=== PATIENT | male | born 1950 | race Caucasian/White ===

== ENCOUNTER 2017-03-23 10:50 | Emergency (ER) | payer OTHER ==
[2017-03-23 10:57] VITALS: BP 171/83; BMI 32.5
--- NOTE | 2017-03-23 11:26 | DR.GENAD ---
HPI - PCP Primary Care Physician: ESSENCE - HPI Comment HPI Comment: WORSE TODAY. HISTORY KIDNEY STONE WELL CHRONIC BACK PAIN. NO DYSURIA OR HEMATURIA. NO TRAUMA. - Complaint/Symptoms Chief Complaint Doctors Comments: LEFT FLANK PAIN, INTERMITTENT FOR THREE DAYS. Chief Complaint:: PT C/O LT FLANK PAIN. PT STATES THE OAIN STARTED SUNDAY AND TODAY THE PAIN IS UNBEARABLE. PT STATES HE HAS A HX OF KIDNEY STONES. Self Treatment fo Chief Complaint: PT HAS TAKEN 1/2 OF PERCOCET THIS AM FOR HIS PAIN - Nurses notes reviewed Nurses Notes Review: Yes - Source History Provided: Patient - Mode of Arrival Mode of Arrival: Ambulatory - Timing Onset of Chief Complaint: 03/20/17 Came on: Suddenly - Duration Duration: Intermittent Duration: Days - Severity Severity: Moderate PMH - PMH Past Medical History: Yes Past Medical History: Arthritis, Diabetes, Dyslipidemia, Migraines, GERD Past Surgical History: Yes Surgical History: Ortho Surgery, Other - Family History History of Family Medical Conditions: Yes Family Medical History: Diabetes Mellitus, Hypertension - Social History Does any household member use tobacco: No Alcohol Use: None Do you use any recreational Drugs:: No Lives With: Family Lives Where: Home - infectious screening In the last 2 months have you had wt loss of >10#?: NO Have you had fever, night sweats or hemotysis?: No Have you traveled outside the country in the last 6 months?: No Isolation: Standard ROS - Review of Systems Constitutional: No Symptoms Reported. negative: Chills, Fever Eyes: No Symptoms Reported ENTM: No Symptoms Reported Respiratoy: No Symptoms Reported Cardiovascular: No Symptoms Reported Gastrointestinal/Abdominal: No Symptoms Reported Genitourinary: No Symptoms Reported Neurological: No Symptoms Reported Musculoskeletal: Back Pain (LT FLANK PAIN) Integumentary: No Symptoms Reported Hematologic/Lymphatic: No Symptoms Reported Endocrine: No Symptoms Reported All Other Systems: Reviewed and Negative PE - Vital Signs Vitals: Temperature 97.9 F Pulse Rate 95 Respiratory Rate 18 Blood Pressure [Right Arm] 158/83 Blood Pressure [Left Arm] 167/90 Blood Pressure 171/83 O2 Sat by Pulse Oximetry 93 - General Limitations: No Limitations General Appearance: Alert - Head Head Exam: Normal Inspection - Eyes Eye exam: Normal Appearance - ENT ENT Exam: Normal External Ear Exam External Ear Exam: Normal External Inspection TM/Canal Exam: Bilateral Normal Nose Exam: Normal Nose Exam Mouth Exam: Normal Inspection Throat Exam: Normal Inspection - Neck Neck Exam: Trachea Midline - Chest Chest Inspection: Symmetric Chest Wall Rise - Respiratory Respiratory Exam: Normal Lung Sounds Bilat Respiratory Exam: Bilateral Clear to Auscultation - Cardiovascular Cardiovascular Exam: Regular Rate, Normal Rhythm, Normal Heart Sounds - Abdominal Exam Abdominal Exam: Normal Bowel Sounds, Soft. negative: Tenderness - Extremities Extremities Exam: Normal Inspection - Back Back Exam: Paraspinal Tenderness - Neurologic Neurological Exam: Alert, Oriented X3 - Psychiatric Psychiatric Exam: Normal Affect, Normal Mood - Skin Skin Exam: Normal Color MDM - Additional Information Additional Information Obtained From: Family - Differential Diagnosis Differential Diagnosis: LOW BACK PAIN, UTI, KIDNEY STONE, ARTHRITIS Course - Treatment Treatment: SEE ORDERS. IM PAIN MED IN ED. - Reevaluation 1st: Improved - Education/Counseling Education/Counseling: Patient, Family, Education Educated On: Treatment, Diagnosis, Needs for Follow Up ROR - Labs Reviewed Laboratory Results Reviewed?: Yes Result Diagrams: 03/23/17 12:15 03/23/17 12:15 Laboratory: WBC 7.6 X10^3/uL (3.6-10.0) 03/23/17 12:15 RBC 5.56 X10^6/uL (4.7-6.0) 03/23/17 12:15 Hgb 18.6 g/dL (13.5-18.0) H 03/23/17 12:15 Hct 53.5 % (42.0-54.0) 03/23/17 12:15 MCV 96.2 fL (80.0-100.0) 03/23/17 12:15 MCH 33.5 pg (27.0-34.0) 03/23/17 12:15 MCHC 34.8 g/dL (33.0-35.0) 03/23/17 12:15 RDW 13.9 % (11.6-16.5) 03/23/17 12:15 Plt Count 149 X10^3/uL (150.0-450.0) L 03/23/17 12:15 MPV 9.0 fL (7.4-11.0) 03/23/17 12:15 Neut % 57.5 % (42.0-75.0) 03/23/17 12:15 Lymph % 24.3 % (21.0-51.0) 03/23/17 12:15 [place] % 13.2 % (0.0-13.0) H 03/23/17 12:15 Eos % 4.3 % (0.9-2.9) H 03/23/17 12:15 Baso % 0.7 % (0.2-1.0) 03/23/17 12:15 Neut # 4.4 x10^3/uL (2.2-4.8) 03/23/17 12:15 Lymph # 1.9 X10^3/uL (1.3-2.9) 03/23/17 12:15 [place] # 1.0 x10^3/uL (0.3-0.8) H 03/23/17 12:15 Eos # 0.3 x10^3/uL (0.0-0.2) H 03/23/17 12:15 Baso # 0.1 X10^3/uL (0.0-0.1) 03/23/17 12:15 Absolute Nucleated RBC 0.2 /100WBC 03/23/17 12:15 Sodium 137 mmol/L (136-145) 03/23/17 12:15 Corrected Sodium 139 mmol/L (136-145) 03/23/17 12:15 Potassium 4.4 mmol/L (3.5-5.1) 03/23/17 12:15 Chloride 101 mmol/L (98-107) 03/23/17 12:15 Carbon Dioxide 28.5 mmol/L (21-32) 03/23/17 12:15 BUN 12 mg/dL (7-18) 03/23/17 12:15 Creatinine 1.13 mg/dL (0.70-1.30) 03/23/17 12:15 Est GFR (MDRD) Af Amer > 60 (>60) 03/23/17 12:15 Est GFR (MDRD) Non-Af > 60 (>60) 03/23/17 12:15 Glucose 198 mg/dL (65-99) H 03/23/17 12:15 Calcium 8.6 mg/dL (8.5-10.1) 03/23/17 12:15 Corrected Calcium TNP 03/23/17 12:15 Total Bilirubin 0.50 mg/dL (0.2-1.0) 03/23/17 12:15 AST 25 Units/L (15-37) 03/23/17 12:15 ALT 54 Units/L (12-78) 03/23/17 12:15 Alkaline Phosphatase 45 Units/L (46-116) L 03/23/17 12:15 Total Protein 6.9 g/dL (6.4-8.2) 03/23/17 12:15 Albumin 3.7 g/dL (3.4-5.0) 03/23/17 12:15 Globulin 3.2 g/dL (2.5-4.5) 03/23/17 12:15 Albumin/Globulin Ratio 1.2 Ratio (1.1-2.1) 03/23/17 12:15 Specimen Type Clean catch urine 03/23/17 11:42 Urine Color Yellow (YELLOW) 03/23/17 11:42 Urine Appearance Clear (CLEAR) 03/23/17 11:42 Urine pH 5.0 (5.0 - 8.0) 03/23/17 11:42 Ur Specific [place] 1.010 (1.000-1.030) 03/23/17 11:42 Urine Protein Negative (NEGATIVE) 03/23/17 11:42 Urine Glucose (UA) 3+ (NEGATIVE) 03/23/17 11:42 Urine Ketones Negative (NEGATIVE) 03/23/17 11:42 Urine Occult Blood Negative (NEGATIVE) 03/23/17 11:42 Urine Nitrite Negative (NEGATIVE) 03/23/17 11:42 Urine Bilirubin Negative (NEGATIVE) 03/23/17 11:42 Urine Urobilinogen Normal (NORMAL) 03/23/17 11:42 Ur Leukocyte Esterase Negative (NEGATIVE) 03/23/17 11:42 Urine RBC 0-2 /HPF (NEGATIVE) 03/23/17 11:42 Urine WBC 0-2 /HPF (NEGATIVE) 03/23/17 11:42 Ur Squamous Epith Cells Negative /HPF (NEGATIVE) 03/23/17 11:42 Urine Bacteria Negative /HPF (NEGATIVE) 03/23/17 11:42 Ur Culture Indicated? No/not indicated 03/23/17 11:42 - XRAY XRAY Interpreted by: Radiologist XRAY Findings: REPORT DISCUSS WITH PATIENT AND FAMILY. - Diagnosis Discharge Problem: Low back pain Qualifiers: Chronicity: acute Back pain laterality: bilateral Sciatica presence: without sciatica Qualified Code(s): M54.5 - Low back pain - Discharge Plan Disposition: HOME, SELF-CARE Condition: Stable Prescriptions: Ketorolac Tromethamine [Toradol Tab] 10 mg PO Q8H PRN #20 tab PRN Reason: Pain - Follow ups/Referrals Follow ups/Referrals: Charly Cleaning [Primary Care Provider] - 3 days - Instructions Instructions: Back Pain, Adult, Jwob-[id number] Additional Instructions: YOU HAVE LEFT FLANK PAIN. CONTINUE WITH HOME MEDS. RETURN TO ED IF WORSE.
[2017-03-23] MEDS ORDERED: ZOFRAN INJ 4 MG VIAL IVP ONE (11:34)
[2017-03-23] MEDS ORDERED: MORPHINE SULFATE INJ 4 MG IVP ONE (11:34)
[2017-03-23] MEDS ORDERED: MORPHINE SULFATE INJ 4 MG ONE (11:50)
[2017-03-23] MEDS ORDERED: ZOFRAN INJ 4 MG VIAL ONE (11:50)
[2017-03-23] MEDS ORDERED: NS 1000 ML 1,000 ML IV SCH (12:00)
[2017-03-23 12:23] LABS: BASOPHILS # (AUTO) 0.1 X10^3/uL (0.0-0.1); BASOPHILS % (AUTO) 0.7 % (0.2-1.0); EOSINOPHILS # (AUTO) 0.3 x10^3/uL (0.0-0.2); EOSINOPHILS % (AUTO) 4.3 % (0.9-2.9); HEMATOCRIT 53.5 % (42.0-54.0); HEMOGLOBIN 18.6 g/dL (13.5-18.0); LYMPHOCYTES # (AUTO) 1.9 X10^3/uL (1.3-2.9); LYMPHOCYTES % (AUTO) 24.3 % (21.0-51.0); MEAN CORPUSCULAR HEMOGLOBIN 33.5 pg (27.0-34.0); MEAN CORPUSCULAR HGB CONC 34.8 g/dL (33.0-35.0); MEAN CORPUSCULAR VOLUME 96.2 fL (80.0-100.0); MONOCYTES % (AUTO) 13.2 % (0.0-13.0); NEUTROPHILS # (AUTO) 4.4 x10^3/uL (2.2-4.8); NEUTROPHILS % (AUTO) 57.5 % (42.0-75.0); PLATELET COUNT 149 X10^3/uL (150.0-450.0); RED BLOOD COUNT 5.56 X10^6/uL (4.7-6.0); RED CELL DISTRIBUTION WIDTH 13.9 % (11.6-16.5); WHITE BLOOD COUNT 7.6 X10^3/uL (3.6-10.0)
[2017-03-23 12:23] LABS: BILIRUBIN,URINE NEGATIVE (NEGATIVE); BLOOD/HEMOGLOBIN,URINE NEGATIVE (NEGATIVE); GLUCOSE, URINE 3+ (NEGATIVE); KETONES,URINE NEGATIVE (NEGATIVE); LEUKOCYTE ESTERASE ,URINE NEGATIVE (NEGATIVE); NITRITES,URINE NEGATIVE (NEGATIVE); PROTEIN,URINE NEGATIVE (NEGATIVE); UROBILINOGEN,URINE NORMAL (NORMAL)
[2017-03-23 12:28] LABS: APPEARANCE,URINE CLEAR (CLEAR); BACTERIA,URINE NEGATIVE /HPF (NEGATIVE); COLOR,URINE YELLOW (YELLOW); RBC,URINE 0-2 /HPF (NEGATIVE); SQUAMOUS EPITHELIAL CELL,UR NEGATIVE /HPF (NEGATIVE)
[2017-03-23 12:32] LABS: ALANINE AMINOTRANSFERASE 54 Units/L (12-78); ALBUMIN 3.7 g/dL (3.4-5.0); ALKALINE PHOSPHATASE 45 Units/L (46-116); ASPARTATE AMINO TRANSFERASE 25 Units/L (15-37); BLOOD UREA NITROGEN 12 mg/dL (7-18); CALCIUM 8.6 mg/dL (8.5-10.1); CARBON DIOXIDE 28.5 mmol/L (21-32); CHLORIDE 101 mmol/L (98-107); COR NA(FOR HYPERGLY) 139 mmol/L (136-145); CREATININE 1.13 mg/dL (0.70-1.30); SODIUM 137 mmol/L (136-145); TOTAL PROTEIN 6.9 g/dL (6.4-8.2); eGFR BLACK RACES > 60 (>60); eGFR NON BLACK RACES > 60 (>60)
[2017-03-23] MEDS ORDERED: DILAUDID INJ ONE (12:55)
[2017-03-23] MEDS ORDERED: DILAUDID INJ IVP ONE (12:55)
[2017-03-23] MEDS ORDERED: NS 1000 ML 1,000 ML ONE (12:58)
--- NOTE | 2017-03-23 14:14 | CT ---
HISTORY: Left flank pain, history kidney stones Study: CT abdomen and pelvis without IV or oral contrast Comparison: 03/05/2015. Technique: Multiple axial images of the abdomen and pelvis were obtained from the lung bases to the pubic symphy sis without the administration of IV or oral contrast. Coronal and sagittal images are also reviewe d. Dose reduction techniques utilized automatic exposure control. Findings: The visualized portions of the lung bases are unremarkable. The liver, spleen, pancreas, kidneys, an d adrenal glands are unremarkable in their CT appearance. Gallbladder has been surgically removed. Th e tiny stone present involving the left kidney is no longer seen. There is no evidence of renal mass, stone or hydronephrosis. IVC filter is again seen.. No significant mesenteric lymphadenopathy or st randing can be observed. No free fluid or free air is seen within the abdomen. No bowel wall thicke alex or bowel dilatation is present. The appendix is normal. Mild descending and sigmoid colon divert iculosis is present without diverticulitis, abscess or fluid.. The urinary bladder is grossly unremar kable. The spine stimulator is no longer identified. Surgical changes in the left-sided metallic scr ew present the lower lumbar spine. There again multiple venous collaterals present along the lower ab dominal and pelvic wall regions. IMPRESSION: The prior seen small kidney stone present in the left midpole region is no longer identified. No evid ence of mass, stone or hydronephrosis is seen involving either kidney. Uncomplicated appearing in mild descending named sigmoid colon diverticulosis without diverticulitis, abscess or pleural fluid. IVC filter Multiple venous collaterals present involving the lower abdomen and pelvic arellano anteriorly. Wart lumbar spine surgery as described. The spine stimulator has been removed. Reported By:
[2017-03-23] MEDS ORDERED: NORFLEX INJ IM ONE (15:12)
[2017-03-23] MEDS ORDERED: TORADOL 30 MG VIAL IVP ONE (15:12)
[2017-03-23] MEDS ORDERED: TORADOL 30 MG VIAL ONE (15:17)
[2017-03-23] MEDS ORDERED: NORFLEX INJ ONE (15:17)
== END 2017-03-23 15:43 | disposition home or self-care (01) ==
LOC: ER 11:05
DX: M54.5 Low back pain (principal); R10.84 Generalized abdominal pain
CPT/HCPCS: 36415; 74176; 80053; 81001; 85025; 96365; 96367; 96372; 96374; 96375; 99283; A4222; J1170; J1885; J2270; J2360; J2405

== ENCOUNTER 2018-05-22 11:24 | Observation (INO) ==
[2018-05-22 11:32] VITALS: BMI 32.5
[2018-05-22] MEDS ORDERED: MORPHINE SULFATE INJ 2 MG INJ ONE (11:43)
[2018-05-22] MEDS ORDERED: MORPHINE SULFATE INJ 4 MG IVP PRN (11:43)
--- NOTE | 2018-05-22 11:52 | DR.DIZZY ---
HPI Time seen Time Seen by Provider: 05/22/18 11:43 PCP Primary Care Physician: ESSENCE PHELAN Complaint Chief Complaint Doctor Comments: Patient presented to the ED for evaluation of an acute onset of dizziness s/p leaving his at the physicians office. He denies vomiting. Admits to dizziness and headache. Chief Complaint:: PT DROPPED HIS OFF AND AT 'S OFFICE 30 MIN AGO, PT C/O BECOMING DIZZY, PT ATE FOOD THIS AM ,,AND PT GLUCOSE WAS 165 AT HOME ,,BR Source History Provided: Patient Mode of Arrival Mode of Arrival: Ambulatory Timing Onset of Chief Complaint: 05/22/18 Symptom Onset: Unknown Location of Weakness Weakness Location: None Context History of: None Stroke Symptoms: None Associated signs and symptoms Associated Signs and Symptoms: Imbalance and Weak PMH PMH Past Medical History: Yes Past Medical History: Arthritis, Diabetes, Dyslipidemia, Migraines and GERD Past Surgical History: No Family History History of Family Medical Conditions: Yes Family Medical History: Diabetes Mellitus and Hypertension Social History Does patient currently use any type of tobacco product: No Have you used tobacco products in the last 12 months: No Type of Tobacco Use: None Does any household member use tobacco: No Alcohol Use: None Do you use any recreational Drugs:: Yes Lives With: Family Lives Where: Home infectious screening In the last 2 months have you had wt loss of >10#?: NO Have you had fever, night sweats or hemotysis?: No Have you traveled outside the country in the last 6 months?: No Isolation: Standard PE Vital Signs Vitals: Temperature 98.1 F Pulse Rate [Left] 78 Pulse Rate 80 Respiratory Rate 20 Blood Pressure [Right Arm] 158/83 Blood Pressure [Left Arm] 140/70 Blood Pressure 155/79 O2 Sat by Pulse Oximetry 94 General Limitations: No Limitations and Language Barrier General Appearance: Alert and In No Apparent Distress Head Head Exam: Normal Inspection and Atraumatic Eyes Eye exam: Normal Appearance, PERRL and EOMI Pupils: Regular, Round: Bilateral Sclera/Conjunctival: Normal Inspection: Bilateral Anterior Chamber: Normal Inspection: Bilateral ENT ENT Exam: Normal Exam and Normal Oropharynx Neck Neck Exam: Normal Inspection and Full ROM Chest Chest Inspection: Normal Inspection and Symmetric Chest Wall Rise Respiratory Respiratory Exam: Normal Lung Sounds Bilat and Accessory Muscle Use Respiratory Exam: Bilateral: Clear to Auscultation Cardiovascular Cardiovascular Exam: Regular Rate and Normal Rhythm Abdominal Exam Abdominal Exam: Normal Inspection, Normal Bowel Sounds and Soft Rectal Rectal Exam: Deferred Extremeties Extremities Exam: Normal Inspection and Full ROM Back Back Exam: Normal Inspection and Full ROM Neurologic Neurological Exam: Alert, Oriented X3 and CN II-XII Intact COURSE Treatment Treatment: Morphine 3mg,4mg, Benadryl 50mg,compazine 10mg IV, NS Reevaluation 1st: Unchanged 2nd: Improved (1315: No headache) Consultation Called: 13:10 Consultation Comments: Dr Light office agreed to admit for further evaluation ROR Labs Reviewed Laboratory Results Reviewed?: Yes Result Diagrams: 05/22/18 12:11 05/22/18 12:11 Laboratory: WBC 5.6 X10^3/uL (3.6-10.0) 05/22/18 12:11 RBC 5.08 X10^6/uL (4.7-6.0) 05/22/18 12:11 Hgb 17.2 g/dL (13.5-18.0) 05/22/18 12:11 Hct 49.7 % (42.0-54.0) 05/22/18 12:11 MCV 97.8 fL (80.0-100.0) 05/22/18 12:11 MCH 33.9 pg (27.0-34.0) 05/22/18 12:11 MCHC 34.7 g/dL (33.0-35.0) 05/22/18 12:11 RDW 13.5 % (11.6-16.5) 05/22/18 12:11 Plt Count 166 X10^3/uL (150.0-450.0) 05/22/18 12:11 MPV 9.2 fL (7.4-11.0) 05/22/18 12:11 Neut % (Auto) 52.7 % (42.0-75.0) 05/22/18 12:11 Lymph % (Auto) 28.2 % (21.0-51.0) 05/22/18 12:11 [place] % (Auto) 14.9 % (0.0-13.0) H 05/22/18 12:11 Eos % (Auto) 3.6 % (0.9-2.9) H 05/22/18 12:11 Baso % (Auto) 0.6 % (0.2-1.0) 05/22/18 12:11 Neut # (Auto) 3.0 x10^3/uL (2.2-4.8) 05/22/18 12:11 Lymph # (Auto) 1.6 X10^3/uL (1.3-2.9) 05/22/18 12:11 [place] # (Auto) 0.8 x10^3/uL (0.3-0.8) 05/22/18 12:11 Eos # (Auto) 0.2 x10^3/uL (0.0-0.2) 05/22/18 12:11 Baso # (Auto) 0.0 X10^3/uL (0.0-0.1) 05/22/18 12:11 Absolute Nucleated RBC 0.0 /100WBC 05/22/18 12:11 INR Target Range - 05/22/18 11:50 INR 0.99 (0.8-1.3) 05/22/18 11:50 Sodium 136 mmol/L (136-145) 05/22/18 12:11 Corrected Sodium 140 mmol/L (136-145) 05/22/18 12:11 Potassium 4.4 mmol/L (3.5-5.1) 05/22/18 12:11 Chloride 101 mmol/L (98-107) 05/22/18 12:11 Carbon Dioxide 25.2 mmol/L (21-32) 05/22/18 12:11 BUN 20 mg/dL (7-18) H 05/22/18 12:11 Creatinine 1.22 mg/dL (0.70-1.30) 05/22/18 12:11 Est GFR (MDRD) Af Amer > 60 (>60) 05/22/18 12:11 Est GFR (MDRD) Non-Af > 60 (>60) 05/22/18 12:11 Glucose 258 mg/dL (65-99) H 05/22/18 12:11 POC Glucose (mg/dL) 283 mg/dL (65-99) H 05/22/18 17:39 Calcium 8.7 mg/dL (8.5-10.1) 05/22/18 12:11 Corrected Calcium TNP 05/22/18 12:11 Magnesium 1.8 mg/dL (1.7-2.9) 05/22/18 12:11 Total Bilirubin 0.60 mg/dL (0.2-1.0) 05/22/18 12:11 AST 24 Units/L (15-37) 05/22/18 12:11 ALT 45 Units/L (12-78) 05/22/18 12:11 Alkaline Phosphatase 49 Units/L (46-116) 05/22/18 12:11 Creatine Kinase 272 Units/L (39-308) 05/22/18 12:11 CK-MB (CK-2) 1.6 ng/mL (0-4.0) 05/22/18 12:11 CK/CKMB % Calc 0.6 % (<4) 05/22/18 12:11 Troponin I < 0.02 ng/mL (0-1.5) 05/22/18 12:11 Total Protein 6.6 g/dL (6.4-8.2) 05/22/18 12:11 Albumin 3.5 g/dL (3.4-5.0) 05/22/18 12:11 Globulin 3.1 g/dL (2.5-4.5) 05/22/18 12:11 Albumin/Globulin Ratio 1.1 Ratio (1.1-2.1) 05/22/18 12:11 TSH 3rd Generation 1.666 uIU/mL (0.358-3.74) 05/22/18 12:11 Other Results Comments: CT Brain w/o: There is no significant change compared to 03/31/15. The ventricles and sulci are prominent without mass effect. There is no intracranial hemorrhage or mass or edema or subdural collection of fluid. The paranasal sinuses are clear. The mastoid sinuses are clear. The calvaium is intact. Impression: No acute intracranial disease. Chest: No acute ca rdiopulmonary process. MRI: No acute ischemic or hemorrhagic insult. Mild chronic microvascular white matter ischemic disease. Age advanced volume loss XRAY XRAY Interpreted by: Radiologist Instructions Instructions: Migraine Headache, Nxas-me-Temc Vertigo, Jgkb-sf-Wglz Type 2 Diabetes Mellitus, Self Care, Adult, Bnje-wm-Vqzh Dizziness, Uutw-ye-Idov Forms: Patient Portal ADDITIONAL NOTES Additional Notes Additional Notes: Patient admitted for further evaluation
--- NOTE | 2018-05-22 12:15 | CT ---
History: Dizziness starting this morning Study: CT head without contrast. Sagittal and coronal reformations were provided. Comparison: March 31, 2015 Findings: There is no significant change. The ventricles and sulci are prominent without mass effect. There is no intracranial hemorrhage or mass or edema or subdural collection of fluid. The paranasal sinuses are clear. The mastoid sinuses are clear. The calvarium is intact. Impression: No acute intracranial disease Reported By:
[2018-05-22] MEDS ORDERED: MORPHINE SULFATE INJ 2 MG INJ IVP ONE (12:19)
[2018-05-22 12:32] LABS: BASOPHILS % (AUTO) 0.6 % (0.2-1.0); EOSINOPHILS # (AUTO) 0.2 x10^3/uL (0.0-0.2); EOSINOPHILS % (AUTO) 3.6 % (0.9-2.9); HEMATOCRIT 49.7 % (42.0-54.0); HEMOGLOBIN 17.2 g/dL (13.5-18.0); LYMPHOCYTES # (AUTO) 1.6 X10^3/uL (1.3-2.9); LYMPHOCYTES % (AUTO) 28.2 % (21.0-51.0); MEAN CORPUSCULAR HEMOGLOBIN 33.9 pg (27.0-34.0); MEAN CORPUSCULAR HGB CONC 34.7 g/dL (33.0-35.0); MEAN CORPUSCULAR VOLUME 97.8 fL (80.0-100.0); MEAN PLATELET VOLUME 9.2 fL (7.4-11.0); MONOCYTES # (AUTO) 0.8 x10^3/uL (0.3-0.8); MONOCYTES % (AUTO) 14.9 % (0.0-13.0); NEUTROPHILS % (AUTO) 52.7 % (42.0-75.0); PLATELET COUNT 166 X10^3/uL (150.0-450.0); RED BLOOD COUNT 5.08 X10^6/uL (4.7-6.0); RED CELL DISTRIBUTION WIDTH 13.5 % (11.6-16.5); WHITE BLOOD COUNT 5.6 X10^3/uL (3.6-10.0)
[2018-05-22] MEDS ORDERED: BENADRYL INJ 50 MG VIAL IVP ONE (12:36)
[2018-05-22] MEDS ORDERED: COMPAZINE INJ IVP ONE (12:36)
[2018-05-22] MEDS ORDERED: NS 1000 ML 1,000 ML IV ONE (12:36)
[2018-05-22] MEDS ORDERED: COMPAZINE INJ ONE (12:39)
[2018-05-22] MEDS ORDERED: NS 1000 ML 1,000 ML ONE (12:39)
[2018-05-22 12:40] LABS: BLOOD UREA NITROGEN 20 mg/dL (7-18); CALCIUM 8.7 mg/dL (8.5-10.1); CARBON DIOXIDE 25.2 mmol/L (21-32); CHLORIDE 101 mmol/L (98-107); COR NA(FOR HYPERGLY) 140 mmol/L (136-145); CREATININE 1.22 mg/dL (0.70-1.30); SODIUM 136 mmol/L (136-145); TROPONIN I < 0.02 ng/mL (0-1.5); eGFR NON BLACK RACES > 60 (>60)
[2018-05-22] MEDS ORDERED: BENADRYL INJ 50 MG VIAL ONE (12:40)
[2018-05-22 12:45] LABS: ALANINE AMINOTRANSFERASE 45 Units/L (12-78); ALBUMIN 3.5 g/dL (3.4-5.0); ALKALINE PHOSPHATASE 49 Units/L (46-116); ASPARTATE AMINO TRANSFERASE 24 Units/L (15-37); CKMB % 0.6 % (<4); CREATINE KINASE 272 Units/L (39-308); CREATINE KINASE MB 1.6 ng/mL (0-4.0); MAGNESIUM 1.8 mg/dL (1.7-2.9); TOTAL PROTEIN 6.6 g/dL (6.4-8.2)
--- NOTE | 2018-05-22 13:20 | RAD ---
HISTORY: Dizziness Study: Single view chest Comparison: 05/23/2016 Findings: Single portable view is submitted. Lung volumes are reduced resulting in bronchovascular crowding. No infiltrate, effusion or pneumothorax identified. The cardiac and mediastinal contours are within normal limits. The soft tissues are unremarkable. IMPRESSION: 1. No acute cardiopulmonary abnormality. Reported By:
[2018-05-22] MEDS ORDERED: PHENERGAN SUPP 25 MG PR PRN (13:37)
[2018-05-22] MEDS ORDERED: NORCO 5/325 MG TAB PO PRN (13:37)
[2018-05-22] MEDS ORDERED: ZOFRAN INJ 4 MG VIAL IVP PRN (13:37)
--- NOTE | 2018-05-22 14:46 | MRI ---
MRI BRAIN WITHOUT CONTRAST CLINICAL HISTORY: 67-year-old male with altered mental status, dizziness and left-sided headache. COMPARISON: CT head this date and 03/31/2015. TECHNIQUE: Multiplanar, multisequence MR images of the brain were obtained without contrast. FINDINGS: There is no evidence of diffusion restriction. The craniocervical junction is normal. Pituitary and optic nerve complex are normal. Few scattered punctate T2 FLAIR signal hyperintensities are present within the subcortical, juxtacortical, periventricular and supraventricular white matter that are nonspecific in appearance but most likely to represent microvascular white matter ischemic changes. Normal signal characteristics and morphology are demonstrated within the cerebral cortex, corpus callosum, deep [place] nuclei, brainstem and cerebellum. The major vascular flow voids, to include the dural venous sinuses, are intact. No abnormal susceptibility on gradient imaging. Age advanced cortical volume loss is present, with commensurate sulcal and ventricular prominence. The basilar cisterns are normal. Extra-axial cystic structure abutting the right lateral convexity overlying the right frontal lobe follows CSF on all sequences and measures 2.1 x 1.5 x 2.1 cm with smooth scalloping of the inner table, stable since CT head dated 03/31/2015. The orbits and globes are within normal limits. The paranasal sinuses, tympanic cavities and mastoids are clear. IMPRESSION: 1. No acute ischemic or hemorrhagic insult. 2. Mild chronic microvascular white matter ischemic disease. 3. Age advanced volume loss. 4. Cystic extra-axial lesion overlying the right frontal lobe as described above most consistent with arachnoid cyst. Reported By:
[2018-05-22] MEDS ORDERED: PERCOCET TAB 5/325 MG PO PRN (15:24)
[2018-05-22] MEDS: GLUCOPHAGE PO SCH (17:37)
[2018-05-22] MEDS: HumuLIN R SUBCUT PRN ×2 (17:44→21:13)
[2018-05-22] MEDS: GLUCOTROL PO SCH (17:47)
[2018-05-22] MEDS ORDERED: SNACK - Diabetic Appropriate PO SCH (20:00)
[2018-05-22] MEDS ORDERED: GLUCOPHAGE ONE (20:22)
[2018-05-22] MEDS ORDERED: LEVEMIR SC SCH (21:00)
[2018-05-22] MEDS ORDERED: PATIENT'S HOME MEDICATION (Melatonin [Melatonin] 5 MG) PO SCH (21:00)
[2018-05-22] MEDS ORDERED: VICTOZA SC SCH (21:00)
[2018-05-22] MEDS ORDERED: LIPITOR TAB 20 MG PO SCH (21:00)
[2018-05-22] MEDS ORDERED: XANAX PO SCH (21:00)
[2018-05-22] MEDS ORDERED: GLIPIZIDE METFORMIN PO SCH (21:00)
[2018-05-22] MEDS: ZANAFLEX PO SCH (21:05)
[2018-05-22] MEDS: INDERAL TAB 10 MG PO SCH (21:06)
[2018-05-22] MEDS: GLUCOPHAGE ONE ×2 (21:09→21:12)
[2018-05-23 05:21] LABS: BASOPHILS % (AUTO) 0.5 % (0.2-1.0); EOSINOPHILS # (AUTO) 0.3 x10^3/uL (0.0-0.2); EOSINOPHILS % (AUTO) 5.1 % (0.9-2.9); HEMATOCRIT 49.2 % (42.0-54.0); HEMOGLOBIN 16.8 g/dL (13.5-18.0); LYMPHOCYTES # (AUTO) 1.8 X10^3/uL (1.3-2.9); LYMPHOCYTES % (AUTO) 34.7 % (21.0-51.0); MEAN CORPUSCULAR HEMOGLOBIN 34.2 pg (27.0-34.0); MEAN CORPUSCULAR HGB CONC 34.1 g/dL (33.0-35.0); MEAN CORPUSCULAR VOLUME 100.2 fL (80.0-100.0); MEAN PLATELET VOLUME 9.3 fL (7.4-11.0); MONOCYTES # (AUTO) 0.9 x10^3/uL (0.3-0.8); MONOCYTES % (AUTO) 17.3 % (0.0-13.0); NEUTROPHILS # (AUTO) 2.3 x10^3/uL (2.2-4.8); NEUTROPHILS % (AUTO) 42.4 % (42.0-75.0); PLATELET COUNT 158 X10^3/uL (150.0-450.0); RED BLOOD COUNT 4.91 X10^6/uL (4.7-6.0); RED CELL DISTRIBUTION WIDTH 13.8 % (11.6-16.5); WHITE BLOOD COUNT 5.3 X10^3/uL (3.6-10.0)
[2018-05-23 05:33] LABS: ALANINE AMINOTRANSFERASE 44 Units/L (12-78); ALBUMIN 3.2 g/dL (3.4-5.0); ALKALINE PHOSPHATASE 46 Units/L (46-116); ASPARTATE AMINO TRANSFERASE 22 Units/L (15-37); BLOOD UREA NITROGEN 10 mg/dL (7-18); CALCIUM 8.6 mg/dL (8.5-10.1); CARBON DIOXIDE 29.6 mmol/L (21-32); CHLORIDE 103 mmol/L (98-107); COR CA(FOR HYPOALB) 9.2 mg/dL (8.5-10.1); COR NA(FOR HYPERGLY) 144 mmol/L (136-145); CREATININE 1.11 mg/dL (0.70-1.30); SODIUM 140 mmol/L (136-145); TOTAL PROTEIN 6.1 g/dL (6.4-8.2); eGFR NON BLACK RACES > 60 (>60)
[2018-05-23] MEDS: HumuLIN R SUBCUT PRN ×2 (05:49→11:49)
[2018-05-23 07:56] VITALS: BP 142/82
[2018-05-23] MEDS ORDERED: GLUCOPHAGE ONE ×2 (08:05→08:40)
[2018-05-23] MEDS: ZANAFLEX PO SCH (08:32)
[2018-05-23] MEDS: GLUCOPHAGE PO SCH ×2 (08:34→09:23)
[2018-05-23] MEDS: GLUCOTROL PO SCH ×2 (08:35→09:23)
[2018-05-23] MEDS: INDERAL TAB 10 MG PO SCH (08:35)
[2018-05-23] MEDS ORDERED: CELEBREX PO SCH (09:00)
[2018-05-23] MEDS ORDERED: PROTONIX TAB 40 MG PO SCH (09:00)
[2018-05-23] MEDS ORDERED: LOVAZA PO SCH (09:00)
[2018-05-23] MEDS ORDERED: LYRICA CAP 100 MG PO PRN (09:00)
[2018-05-23] MEDS ORDERED: LEVEMIR SC SCH (09:00)
[2018-05-23] MEDS ORDERED: SINGULAIR TAB 10 MG PO SCH (09:00)
[2018-05-23] MEDS ORDERED: FOLIC ACID TAB 1 MG PO SCH (09:00)
--- NOTE | 2018-06-02 21:13 | DR.CARTERS ---
Short Stay Summary - Admission Date Date of Admission: 05/22/18 - Discharge Date Discharge Date: 05/23/18 - Admission Diagnoses (1) Dizziness Status: Acute (2) Migraine headache Status: Acute (3) Type II diabetes mellitus, uncontrolled Status: Chronic - Hospital Course Hospital Course: IS A 67 YEAR OLD PATIENT OF OURS WHO PRESENTED TO THE ER WITH COMPLAINTS OF DIZZINESS AND INCREASED BLOOD SUGAR. HE ALSO REPORTS HEADACHE. ON ARRIVAL, VITALS WERE 97.1-90-20-97%-168/80. LABS WERE OBTAINED. ABNORMAL LAB VALUES INCLUDED THE FOLLOWING: BUN 20, GLUCOSE 258. A BRAIN CT WAS OBTAINED AND REVEALED: NO ACUTE INTRACRANIAL DISEASE. A CHEST XRAY WAS OBTAINED AND REVEALED: NO ACUTE CARDIOPULMONARY ABNORMALITY. EKG REVEALED SINUS RHYTHM WITH HR 82. HE WAS GIVEN A NORMAL SALINE BOLUS IN THE ER WELL BENADRYL 50MG IV X 1, MORPHINE 3MG IV X 1, THEN MORPHINE 4MG IV X 1. HE WAS ADMITTED FOR FURTHER EV ALUATION AND TREATMENT OF ACUTE DIZZINESS, HEADACHE, AND HYPERGLYCEMIA. AFTER ADMISSION, A MRI WAS OBTAINED. IT REVEALED: No acute ischemic or hemorrhagic insult. Mild chronic microvascular white matter ischemic disease. Age advanced volume loss. Cystic extra-axial lesion overlying the right frontal lobe as described above most consistent with arachnoid cyst. WE PLANNED TO FOLLOW UP WITH AM LABS AND CONTINUE TO MONITOR. ON THE MORNING FOLLOWING ADMISSION, PATIENT REPORTED FEELING WELL. HE DENIED DIZZINESS OR HEADACHE. AM VITALS WERE 98.5-70-13-95%-142/82. LABS WERE OBTAINED. ABNORMAL LAB VALUES INCLUDE THE FOLLOWING: GLUCOSE 247, TOTAL PROTEIN 6.1, ALBUMIN 3.2. NO CHANGES NOTED TO EKGS. WE PLANNED FOR DISCHARGE. INSTRUCTIONS FOR MEDICATIONS AND DISCHARGE GIVEN TO PATIENT AND FAMILY. THEY VERBALIZED UNDERSTANDING. PATIENT WAS INSTRUCTED TO DECREASE LEVEMIR TO 25UNITS BID AND START FARXIGA 5MG PO DAILY. HE WAS INSTRUCTED TO CONTINUE ALL OTHER HOME MEDICATIONS. HE WAS GIVEN AN APPOINTMENT TO FOLLOW UP IN THE OFFICE ON 06/06/18 AT 2:50PM. HE WAS DISCHARGE HOME WITH SPOUSE IN STABLE CONDITION. - Discharge Medications Discharge Medications: Home Medication List Lyrica 100 mg PO TID 05/22/18 [History] Victoza 2-Mitch 18 units SUBCUT HS 05/22/18 [History] atorvastatin 20 mg PO HS 05/22/18 [History] celecoxib 200 mg PO DAILY 05/22/18 [History] clonazepam 1 - 2 tab PO .EVERYOTHERDAY 05/22/18 [History] folic acid 800 mg PO DAILY 05/22/18 [History] furosemide 20 mg PO DAILY 05/22/18 [History] glipizide-metformin 1 tab PO BID 05/22/18 [History] melatonin 5 mg PO HS 05/22/18 [History] montelukast 10 mg PO DAILY 05/22/18 [History] omega 3-swi-hxr-fish oil [Fish Oil] 800 mg PO DAILY 05/22/18 [History] tizanidine 6 mg PO BID 05/22/18 [History] dapagliflozin [Farxiga] 5 mg PO QAM #30 tab 05/23/18 [Rx] insulin detemir U-100 [Levemir U-100 Insulin] 25 unit SUBCUT BID #1 vial 05/23/18 [Rx] Prescriptions: dapagliflozin [Farxiga] Charly Cleaning insulin detemir U-100 [Levemir U-100 Insulin] Charly Cleaning - Discharge Plan Disposition: 01 HOME, SELF-CARE Condition: Stable Prescriptions: dapagliflozin [Farxiga] 5 mg PO QAM #30 tab insulin detemir U-100 [Levemir U-100 Insulin] 25 unit SUBCUT BID #1 vial - Follow up/Referrals Follow up/Referrals: Charly Cleaning [Primary Care Provider] - 06/06/18 2:50 pm - Instructions Instructions: Migraine Headache, Wryz-hx-Ysod, Form - Daily Diabetes Record, Vertigo, Rjry-xq-Zvtu, Coping With Diabetes, Type 2 Diabetes Mellitus, Self Care, Adult, Zzam-fo-Jntt, Dizziness, Wzun-fa-Yyhk, How to Avoid Diabetes Mellitus Problems Additional Instructions: DIABETIC DIET. ACTIVITY TOLERATED. Forms: Patient Portal
== END 2018-05-23 11:50 | disposition home or self-care (01) ==
LOC: MED/SURG 11:27 → ER 11:27 → MED/SURG 14:00
PROVIDERS: ADMIT Internal Medicine; ATTEND Internal Medicine
DX: E78.2 Mixed hyperlipidemia; R94.31 Abnormal electrocardiogram [ECG] [EKG]; R42 Dizziness and giddiness; K21.9 Gastro-esophageal reflux disease without esophagitis; Z79.899 Other long term (current) drug therapy; E11.65 Type 2 diabetes mellitus with hyperglycemia; G43.809 Other migraine, not intractable, without status migrainosus; I10 Essential (primary) hypertension; G93.0 Cerebral cysts
CPT/HCPCS: 36415; 70450; 70551; 71010; 71045; 80053; 82550; 82553; 83735; 84443; 84484; 85025; 85610; 93005; 96365; 96372; 96374; 96375; 99284; A4222; G0378; J0780; J1200; J1815; J2270; J7030

== ENCOUNTER 2025-01-08 15:11 | Observation (INO) ==
[2025-01-08] MEDS: MORPHINE SULFATE INJ 2 MG INJ IVP ONE (15:41)
[2025-01-08 15:44] LABS: MEAN PLATELET VOLUME 9.1 fL (7.4-11.0); RED CELL DISTRIBUTION WIDTH 13.8 % (11.6-16.5)
--- NOTE | 2025-01-08 15:47 | DR.GENAD ---
HPI Time Seen Time Seen by Provider: 01/08/25 15:22 PCP Primary Care Physician: theron Complaint/Symptoms Chief Complaint Doctors Comments: Patient with complaint of left knee pain for 2 weeks had ultrasound ordered by his Ortho and was found to have new DVT. Patient is currently on Plavix due to coronary artery disease with stents. Patient states he is having some difficulty walking on that leg due to pain. Denies shortness of breath or chest pain. Otherwise has no complaints. Chief Complaint:: Patient states about two weeks ago he started having pain behind the left knee so he made an appointment with bone [facility] and he seen the [facility] and they set him up to go back in a week to see the doctor and by then the pain had moved down to his left calf so the physician ordered a outpatient LEV that he just had done and told him he had a clot to come to the ER. Self Treatment fo Chief Complaint: oxycodone 0630 COVID-19 Coronavirus risk:travel/contact w/high risk person: No Has patient experienced Coronavirus symptoms: No Source History Provided: Patient Mode of Arrival Mode of Arrival: Wheelchair Timing Onset of Chief Complaint: 12/25/24 PMH PMH Past Medical History: Yes Past Medical History: Arthritis, Diabetes, Dyslipidemia, GERD and Hypertension Past Medical History Comment: blood clot Past Surgical History: Yes Surgical History: Abdominal Surgery, Angioplasty/Stents, Ortho Surgery, Lithotripsy and Other Past Surgical History Comment: back sx Family History History of Family Medical Conditions: Yes Family Medical History: Diabetes Mellitus and Hypertension Social History Does patient currently use any type of tobacco product: No Have you used tobacco products in the last 12 months: No Type of Tobacco Use: None Does any household member use tobacco: No Alcohol Use: None Do you use any recreational Drugs:: No Lives With: Family Lives Where: Home Travel Risk Coronavirus risk:travel/contact w/high risk person: No Has patient experienced Coronavirus symptoms: No Infectious screening In the last 2 months have you had wt loss of >10#?: NO Have you had fever, night sweats or hemotysis?: No Have you traveled outside the country in the last 6 months?: No Isolation: Standard ROS Review of Systems Constitutional: No Symptoms Reported; negative Fever Eyes: No Symptoms Reported ENTM: No Symptoms Reported Respiratoy: No Symptoms Reported; negative Short of Breath Cardiovascular: See HPI and Edema (Left lower extremity); negative Chest Pain, Palpitations, Syncope or Cyanosis Gastrointestinal/Abdominal: No Symptoms Reported Genitourinary: No Symptoms Reported Neurological: No Symptoms Reported Musculoskeletal: No Symptoms Reported Integumentary: No Symptoms Reported Hematologic/Lymphatic: No Symptoms Reported Endocrine: No Symptoms Reported Psychiatric: No Symptoms Reported All Other Systems: Reviewed and Negative PE Vital Signs Vitals: Vital Signs Temperature 97.9 F Pulse Rate 79 Pulse Rate 85 Pulse Rate 79 Respiratory Rate 18 Respiratory Rate 24 Respiratory Rate 17 Respiratory Rate 25 Blood Pressure 120/58 Blood Pressure 143/66 O2 Sat by Pulse Oximetry 94 O2 Sat by Pulse Oximetry 94 General Limitations: No Limitations General Appearance: Alert and In No Apparent Distress Head Head Exam: Normal Inspection Eyes Eye exam: Normal Appearance Neck Neck Exam: Normal Inspection Chest Chest Inspection: Normal Inspection Respiratory Respiratory Exam: Normal Lung Sounds Bilat Respiratory Exam: Bilateral: Clear to Auscultation Cardiovascular Cardiovascular Exam: Regular Rate and Normal Rhythm Abdominal Exam Abdominal Exam: Normal Inspection, Normal Bowel Sounds and Soft Extremities Extremities Exam: Normal Capillary Refill and Edema (Left lower extremity) Back Back Exam: Normal Inspection Neurologic Neurological Exam: Alert and Oriented X3 Psychiatric Psychiatric Exam: Normal Affect and Normal Mood Skin Skin Exam: Warm, Dry, Intact and Normal Color COURSE Treatment Treatment: Left lower extremity DVT. Discussed results of workup with patient and family. Discussed risk of benefits of adding Eliquis to his medications and they are agreeable. Patient concerned about going home due to the pain in his leg and he is agreeable to admission. Consultation Called: 17:21 Consultation Comments: Discussed case with Dr. Oquendo and she is agreeable with admission. ROR Labs Reviewed Laboratory Results Reviewed?: Yes 01/08/25 15:37 01/08/25 15:37 Laboratory: WBC 7.5 X10^3/uL (3.6-10.0) 01/08/25 15:37 RBC 4.42 X10^6/uL (4.7-6.0) L 01/08/25 15:37 Hgb 14.5 g/dL (13.5-18.0) 01/08/25 15:37 Hct 42.7 % (42.0-54.0) 01/08/25 15:37 MCV 96.8 fL (80.0-100.0) 01/08/25 15:37 MCH 32.8 pg (27.0-34.0) 01/08/25 15:37 MCHC 33.8 g/dL (33.0-35.0) 01/08/25 15:37 RDW 13.8 % (11.6-16.5) 01/08/25 15:37 Plt Count 217 X10^3/uL (150.0-450.0) 01/08/25 15:37 MPV 9.1 fL (7.4-11.0) 01/08/25 15:37 Neut % (Auto) 63.0 % (42.0-75.0) 01/08/25 15:37 Lymph % (Auto) 24.4 % (21.0-51.0) 01/08/25 15:37 [place] % (Auto) 8.8 % (0.0-13.0) 01/08/25 15:37 Eos % (Auto) 3.3 % (0.9-2.9) H 01/08/25 15:37 Baso % (Auto) 0.5 % (0.2-1.0) 01/08/25 15:37 Neut # (Auto) 4.7 x10^3/uL (2.2-4.8) 01/08/25 15:37 Lymph # (Auto) 1.8 X10^3/uL (1.3-2.9) 01/08/25 15:37 [place] # (Auto) 0.7 x10^3/uL (0.3-0.8) 01/08/25 15:37 Eos # (Auto) 0.2 x10^3/uL (0.0-0.2) 01/08/25 15:37 Baso # (Auto) 0.0 X10^3/uL (0.0-0.1) 01/08/25 15:37 Absolute Nucleated RBC 0.1 /100WBC 01/08/25 15:37 PT 13.3 SECONDS (11.8-14.3) 01/08/25 15:37 INR Target Range - 01/08/25 15:37 INR 1.00 (0.8-1.3) 01/08/25 15:37 APTT 26.2 SECONDS (22.9-36.5) 01/08/25 15:37 PTT Comment - 01/08/25 15:37 Sodium 143 mmol/L (136-145) 01/08/25 15:37 Corrected Sodium 145 mmol/L (136-145) 01/08/25 15:37 Potassium 4.6 mmol/L (3.5-5.1) 01/08/25 15:37 Chloride 104 mmol/L (98-107) 01/08/25 15:37 Carbon Dioxide 29.3 mmol/L (21-32) 01/08/25 15:37 BUN 19 mg/dL (7-18) H 01/08/25 15:37 Creatinine 1.07 mg/dL (0.70-1.30) 01/08/25 15:37 Est GFR (MDRD) Af Amer > 60 (>60) 01/08/25 15:37 Est GFR (MDRD) Non-Af > 60 (>60) 01/08/25 15:37 Glucose 164 mg/dL (65-99) H 01/08/25 15:37 Calcium 8.9 mg/dL (8.5-10.1) 01/08/25 15:37 Corrected Calcium TNP 01/08/25 15:37 Total Bilirubin 0.30 mg/dL (0.2-1.0) 01/08/25 15:37 AST 26 Units/L (15-37) 01/08/25 15:37 ALT 35 Units/L (12-78) 01/08/25 15:37 Alkaline Phosphatase 75 Units/L (46-116) 01/08/25 15:37 Total Protein 7.1 g/dL (6.4-8.2) 01/08/25 15:37 Albumin 3.9 g/dL (3.4-5.0) 01/08/25 15:37 Globulin 3.2 g/dL (2.5-4.5) 01/08/25 15:37 Albumin/Globulin Ratio 1.2 Ratio (1.1-2.1) 01/08/25 15:37 Opioid Opioid Risk Tool Age (John box if 16-45): No History of Preadolescent Sexual Abuse: No Total: 0 Total Score Risk Category: Low Risk Copyright: George MATTHEWS predicting aberrant behaviors Discharge Plan Diagnosis Discharge Problem: Acute deep vein thrombosis (DVT) of left lower extremity, Type II diabetes mellitus, uncontrolled, HTN (hypertension), Hyperlipidemia, CAD (coronary artery disease), BPH (benign prostatic hyperplasia), GERD (gastroesophageal reflux disease) Discharge Plan Patient Disposition: 09 ADMITTED INPATIENT Condition: Stable Prescriptions: No Action atorvastatin 80 mg tablet 80 mg PO QDAY alprazolam 1 mg tablet 1 mg PO BID PRN tizanidine 4 mg tablet 4 mg PO TID PRN clopidogrel 75 mg tablet 75 mg PO QDAY pantoprazole 40 mg tablet,delayed release (DR/EC) 40 mg PO BID furosemide 20 mg tablet 20 mg PO QAM propranolol 20 mg tablet 20 mg PO BID escitalopram oxalate 10 mg tablet 10 mg PO QAM latanoprost 0.005 % drops 1 drp OPHTHALMIC (EYE) DAILY Patient Comments: [NO ORIGINAL SIG] celecoxib 100 mg capsule 100 mg PO QDAY pregabalin 150 mg capsule 150 mg PO BID oxycodone 20 mg tablet 20 mg PO BID PRN metformin 500 mg Tablet 1,000 mg PO BID losartan 25 mg tablet 25 mg PO QDAY insulin aspart U-100 [Novolog FlexPen U-100 Insulin] 100 unit/mL (3 mL) Insulin Pen See Rx Instructions .ROUTE .COMPLEX Rx Instructions: sliding scale dapagliflozin propanediol [Farxiga] 10 mg Tablet 10 mg PO DAILY insulin degludec [Tresiba U-100 Insulin] 100 unit/mL Solution 80 unit SUBCUT HS Ozempic 0.25 mg or 0.5 mg (2 mg/3 mL) Pen Injector 0.5 mg SUBCUT WEEKLY Health Concerns: Post Hospitalization: new medications and changes needed to prevent readmission or further decline. Pt educated and given instructions on all concerns. Plan of Treatment: Continue with present treatment and follow up plan. Pt is to keep follow up appointment as instructed and take medications as ordered. Orders to Discharge Patient Discharge Orders: Transfer (Routine); Ordered 01/08/25 Ordered By: Singh Gonzalez Follow ups/Referrals Follow ups/Referrals: Charly Cleaning [Primary Care Provider, MEDICAL] - 3 days Instructions Stand Alone Forms: Find Help Web Site, Post Hospital Follow Up Care Print Language: MACEDONIAN
[2025-01-08 15:53] LABS: INR 1.00 (0.8-1.3)
[2025-01-08 16:00] LABS: COR NA(FOR HYPERGLY) 145 mmol/L (136-145); CREATININE 1.07 mg/dL (0.70-1.30); eGFR NON BLACK RACES > 60 (>60)
--- NOTE | 2025-01-08 16:45 | CT ---
EXAM: CTA, CHEST HISTORY: Shortness of breath/DVT COMPARISON: Chest radiograph from April 14, 2024 TECHNIQUE: Axial CT images of the chest were obtained after the administration of 75 mL Omnipaque IV contrast utilizing a CTA protocol. 3D MIPS were performed and reviewed for further evaluation. Radiation dose: 470.26 mGy-cm total DLP FINDINGS: No significant pericardial effusion. No mediastinal or hilar lymphadenopathy. Aorta is normal in caliber without dissection. Pulmonary arteries are normal in caliber without filling defects to suggest a pulmonary embolus. Airways are widely patent. Thyroid appears normal. No pleural effusion. No focal infiltrate. No pneumothorax. No concerning lung parenchymal lesion identified. Imaged portion of the upper abdomen is unremarkable. No acute osseous abnormality. IMPRESSION: No acute intrathoracic abnormality, specifically, no pulmonary embolus identified. THIS IS AN ELECTRONICALLY VERIFIED FINAL REPORT 01/08/2025 4:42 PM - Electronically signed by Kurt James MD
[2025-01-08] MEDS: ELIQUIS PO SCH (17:33)
[2025-01-08] MEDS ORDERED: ULTRAM PO PRN (17:49)
[2025-01-08] MEDS ORDERED: TYLENOL 325 MG TAB PO PRN (17:49)
[2025-01-08] MEDS ORDERED: MORPHINE SULFATE INJ 2 MG INJ IVP PRN (17:49)
[2025-01-08 18:18] VITALS: BMI 30.9
[2025-01-08] MEDS: NORCO 5/325 MG TAB PO PRN (18:30)
[2025-01-08] MEDS: CONSULT PHARMACY - POTASSIUM & MAGNESIUM XX SCH (18:48)
[2025-01-08] MEDS: SNACK - Diabetic Appropriate PO SCH (19:00)
[2025-01-08] MEDS: NovoLIN R (or HumuLIN R) SUBCUT PRN (20:44)
[2025-01-08] MEDS: INDERAL TAB 10 MG PO SCH (20:44)
[2025-01-08] MEDS: RESTORIL CAP 15 MG PO PRN (20:44)
[2025-01-08] MEDS: PROTONIX TAB 40 MG PO SCH (20:44)
[2025-01-08] MEDS ORDERED: PROPRANOLOL 20 MG PO SCH (21:00)
[2025-01-09 06:11] VITALS: O2SAT 95
[2025-01-09 06:18] LABS: MEAN PLATELET VOLUME 9.1 fL (7.4-11.0); RED CELL DISTRIBUTION WIDTH 13.7 % (11.6-16.5)
[2025-01-09 06:21] LABS: COR NA(FOR HYPERGLY) 143 mmol/L (136-145); CREATININE 0.87 mg/dL (0.70-1.30); eGFR NON BLACK RACES > 60 (>60)
[2025-01-09 07:51] VITALS: BP 151/74; PULSE 70; RESP 21; TEMP 97.8
[2025-01-09] MEDS ORDERED: LEXAPRO ONE (09:05)
[2025-01-09] MEDS: LIPITOR TAB 80 MG PO SCH (09:56)
[2025-01-09] MEDS: PLAVIX PO SCH (09:56)
[2025-01-09] MEDS: LASIX PO SCH (09:56)
[2025-01-09] MEDS: COZAAR PO SCH (09:57)
[2025-01-09] MEDS: LEXAPRO PO SCH (09:57)
--- NOTE | 2025-01-13 16:30 | DR.SSS ---
SHORT STAY SUMMARY Admission Date Date of Admission: 01/08/25 Discharge Date Discharge Date: 01/09/25 Admission Diagnoses Admission Diagnoses: DVT Discharge Diagnoses Discharge Diagnoses: DVT Chief Complaint Chief Complaint: left leg swelling History of Present Illness History of Present Illness: Patient is a 74-year-old male that was admitted for DVT of the left lower extremity. Ultrasound revealed 1. Nonocclusive thrombus noted within the left popliteal vein, likely chronic. He was started on Eliquis. Labs: WBC 6.1, hemoglobin 15, platelets 211, sodium 141, potassium 4.3, creatinine 0.87, glucose 182. CTA of the chest was negative for pulmonary embolism. Patient responded well to treatments. Symptoms significantly improved. He was discharged in stable condition. Prescribed Eliquis. Instructed follow-up with PCP in 1 week. Past Medical History Past Medical History: Arthritis, Diabetes, Dyslipidemia, GERD and Hypertension Additional Medical History: LOW BACK PAIN Past Surgical History Surgical History: Abdominal Surgery, Angioplasty/Stents, Ortho Surgery, Lithotripsy and Other Additional Surgical History: NERVE STIMULATOR Allergies Allergies Allergy/AdvReac Type Severity Reaction Status Date / Time No Known Allergies Allergy Verified 01/08/25 18:25 Medications Home Medications: No Known Allergies Allergy (Verified 01/08/25 18:25) CONTINUE taking the following medications dapagliflozin propanediol 10 mg tablet (Farxiga) 10 mg PO DAILY 01/08/25 [History] insulin aspart U-100 100 unit/mL (3 mL) subcutaneous pen (Novolog FlexPen U-100 Insulin aspart) See Rx Instructions .Route .COMPLEX 01/08/25 [History] insulin degludec 100 unit/mL subcutaneous solution (Tresiba U-100 Insulin) 80 unit subcut HS 01/08/25 [History] losartan 25 mg tablet 25 mg PO QDAY 01/08/25 [History] metformin 500 mg tablet 1,000 mg PO BID 01/08/25 [History] semaglutide 0.25 mg or 0.5 mg (2 mg/3 mL) subcutaneous pen injector (Ozempic) 0.5 mg subcut WEEKLY 01/08/25 [History] Family History Family Medical History: Diabetes Mellitus and Hypertension Social History Does patient currently use any type of tobacco product: Yes Have you used tobacco products in the last 12 months: No Type of Tobacco Use: Smokeless Does any household member use tobacco: No Alcohol Use: None Drug Use: None Review of Systems Constitutional: No Symptoms Reported Eyes: No Symptoms Reported ENT: No Symptoms Reported Respiratory: No Symptoms Reported Cardiovascular: No Symptoms Reported Gastrointestinal: No Symptoms Reported Genitourinary: No Symptoms Reported Musculoskeletal: Leg Pain Skin: No Symptoms Reported Neurological: No Symptoms Reported Physical Exam Vital Signs: Last Vital Signs Temp 97.8 F 01/09/25 07:00 Pulse 70 01/09/25 07:00 Resp 21 01/09/25 07:00 BP 151/74 01/09/25 07:00 Pulse Ox 95 01/09/25 07:00 O2 Del Method Room Air 01/09/25 07:00 FiO2 21 01/08/25 22:45 Oriented: Normal Eyes: Normal Ear: Normal Nose: Normal Respiratory: Clear Throughout Cardiovascular: Normal Auscultation: Bowel Sounds: Normal Palpation: Normal Tenderness: Normal Skin: Normal Musculoskeletal: Leg (LLE edema) Psychiatric: Normal Speech Pattern: Clear Labs Labs: Laboratory Last Values WBC 6.1 X10^3/uL (3.6-10.0) 01/09/25 05:43 RBC 4.50 X10^6/uL (4.7-6.0) L 01/09/25 05:43 Hgb 15.0 g/dL (13.5-18.0) 01/09/25 05:43 Hct 43.4 % (42.0-54.0) 01/09/25 05:43 MCV 96.5 fL (80.0-100.0) 01/09/25 05:43 MCH 33.4 pg (27.0-34.0) 01/09/25 05:43 MCHC 34.6 g/dL (33.0-35.0) 01/09/25 05:43 RDW 13.7 % (11.6-16.5) 01/09/25 05:43 Plt Count 211 X10^3/uL (150.0-450.0) 01/09/25 05:43 MPV 9.1 fL (7.4-11.0) 01/09/25 05:43 Neut % (Auto) 59.1 % (42.0-75.0) 01/09/25 05:43 Lymph % (Auto) 25.8 % (21.0-51.0) 01/09/25 05:43 [place] % (Auto) 10.7 % (0.0-13.0) 01/09/25 05:43 Eos % (Auto) 4.0 % (0.9-2.9) H 01/09/25 05:43 Baso % (Auto) 0.4 % (0.2-1.0) 01/09/25 05:43 Neut # (Auto) 3.6 x10^3/uL (2.2-4.8) 01/09/25 05:43 Lymph # (Auto) 1.6 X10^3/uL (1.3-2.9) 01/09/25 05:43 [place] # (Auto) 0.7 x10^3/uL (0.3-0.8) 01/09/25 05:43 Eos # (Auto) 0.2 x10^3/uL (0.0-0.2) 01/09/25 05:43 Baso # (Auto) 0.0 X10^3/uL (0.0-0.1) 01/09/25 05:43 Absolute Nucleated RBC 0.1 /100WBC 01/09/25 05:43 PT 13.3 SECONDS (11.8-14.3) 01/08/25 15:37 INR Target Range - 01/08/25 15:37 INR 1.00 (0.8-1.3) 01/08/25 15:37 APTT 26.2 SECONDS (22.9-36.5) 01/08/25 15:37 PTT Comment - 01/08/25 15:37 Sodium 141 mmol/L (136-145) 01/09/25 05:43 Corrected Sodium 143 mmol/L (136-145) 01/09/25 05:43 Potassium 4.3 mmol/L (3.5-5.1) 01/09/25 05:43 Chloride 102 mmol/L (98-107) 01/09/25 05:43 Carbon Dioxide 31.2 mmol/L (21-32) 01/09/25 05:43 BUN 15 mg/dL (7-18) 01/09/25 05:43 Creatinine 0.87 mg/dL (0.70-1.30) 01/09/25 05:43 Est GFR (MDRD) Af Amer > 60 (>60) 01/09/25 05:43 Est GFR (MDRD) Non-Af > 60 (>60) 01/09/25 05:43 Glucose 182 mg/dL (65-99) H 01/09/25 05:43 POC Glucose (mg/dL) 184 mg/dL (65-99) H 01/09/25 05:43 Calcium 9.2 mg/dL (8.5-10.1) 01/09/25 05:43 Corrected Calcium TNP 01/09/25 05:43 Total Bilirubin 0.30 mg/dL (0.2-1.0) 01/09/25 05:43 AST 19 Units/L (15-37) 01/09/25 05:43 ALT 30 Units/L (12-78) 01/09/25 05:43 Alkaline Phosphatase 80 Units/L (46-116) 01/09/25 05:43 Total Protein 7.2 g/dL (6.4-8.2) 01/09/25 05:43 Albumin 3.8 g/dL (3.4-5.0) 01/09/25 05:43 Globulin 3.4 g/dL (2.5-4.5) 01/09/25 05:43 Albumin/Globulin Ratio 1.1 Ratio (1.1-2.1) 01/09/25 05:43 Assessment/Plan (1) Acute deep vein thrombosis (DVT) of left lower extremity: Hospital Course Hospital Course: Patient is a 74-year-old male that was admitted for DVT of the left lower extremity. Ultrasound revealed 1. Nonocclusive thrombus noted within the left popliteal vein, likely chronic. He was started on Eliquis. Labs: WBC 6.1, hemoglobin 15, platelets 211, sodium 141, potassium 4.3, creatinine 0.87, glucose 182. CTA of the chest was negative for pulmonary embolism. Patient responded well to treatments. Symptoms significantly improved. He was discharged in stable condition. Prescribed Eliquis. Instructed follow-up with PCP in 1 week. Discharge Medications Discharge Medications: Home Medication List dapagliflozin propanediol 10 mg tablet (Farxiga) 10 mg PO DAILY 01/08/25 [History] insulin aspart U-100 100 unit/mL (3 mL) subcutaneous pen (Novolog FlexPen U-100 Insulin aspart) See Rx Instructions .Route .COMPLEX 01/08/25 [History] insulin degludec 100 unit/mL subcutaneous solution (Tresiba U-100 Insulin) 80 unit subcut HS 01/08/25 [History] losartan 25 mg tablet 25 mg PO QDAY 01/08/25 [History] metformin 500 mg tablet 1,000 mg PO BID 01/08/25 [History] semaglutide 0.25 mg or 0.5 mg (2 mg/3 mL) subcutaneous pen injector (Ozempic) 0.5 mg subcut WEEKLY 01/08/25 [History] Prescriptions: Discharge Plan Discharge Plan Patient Disposition: HOME, SELF-CARE Condition: Stable Health Concerns: Post Hospitalization: new medications and changes needed to prevent readmission or further decline. Pt educated and given instructions on all concerns. Care Plan Goals: Problem: Pain/Alteration in Comfort Goal: Improve/ Resolve Pain; Achieve Pain Tolerance Instructions: Take pain medications as prescribed. Contact your primary care provider if your pain is unrelieved or worsens. Follow up with primary care provider as directed. Plan of Treatment: Continue with present treatment and follow up plan. Pt is to keep follow up appointment as instructed and take medications as ordered. Prescriptions: New Eliquis 5 mg Tablet 10 mg PO BID Qty: 48 0RF Rx Instructions: 10mg for 12 more day BID and then 5mg after that BID No Action atorvastatin 80 mg tablet 80 mg PO QDAY alprazolam 1 mg tablet 1 mg PO BID PRN tizanidine 4 mg tablet 4 mg PO TID PRN clopidogrel 75 mg tablet 75 mg PO QDAY pantoprazole 40 mg tablet,delayed release (DR/EC) 40 mg PO BID furosemide 20 mg tablet 20 mg PO QAM propranolol 20 mg tablet 20 mg PO BID escitalopram oxalate 10 mg tablet 10 mg PO QAM latanoprost 0.005 % drops 1 drp OPHTHALMIC (EYE) DAILY Patient Comments: [NO ORIGINAL SIG] celecoxib 100 mg capsule 100 mg PO QDAY pregabalin 150 mg capsule 150 mg PO BID oxycodone 20 mg tablet 20 mg PO BID PRN metformin 500 mg Tablet 1,000 mg PO BID losartan 25 mg tablet 25 mg PO QDAY insulin aspart U-100 [Novolog FlexPen U-100 Insulin] 100 unit/mL (3 mL) Insulin Pen See Rx Instructions .ROUTE .COMPLEX Rx Instructions: sliding scale dapagliflozin propanediol [Farxiga] 10 mg Tablet 10 mg PO DAILY insulin degludec [Tresiba U-100 Insulin] 100 unit/mL Solution 80 unit SUBCUT HS Ozempic 0.25 mg or 0.5 mg (2 mg/3 mL) Pen Injector 0.5 mg SUBCUT WEEKLY Orders to Discharge Patient Discharge Orders: Discharge (Routine); Ordered 01/09/25 Ordered By: Julia Oquendo Follow ups/Referrals Follow ups/Referrals: Charly Cleaning [Primary Care Provider, MEDICAL] - 01/15/25 10:20 am Instructions Instructions: Deep Vein Thrombosis, Venous Thromboembolism Prevention Stand Alone Forms: Excuse From Work or School, Find Help Web Site, Post Hospital Follow Up Care Print Language: SLOV[place]
== END 2025-01-09 10:55 | disposition home or self-care (01) ==
LOC: ER 15:11 → ICU 17:35 → INTOOBSV 17:35 → ICU 17:56
PROVIDERS: ADMIT Internal Medicine; ATTEND Internal Medicine
DX: Z79.899 Other long term (current) drug therapy; R60.0 Localized edema; I10 Essential (primary) hypertension; I25.10 Atherosclerotic heart disease of native coronary artery without angina pectoris; Z95.5 Presence of coronary angioplasty implant and graft; M25.562 Pain in left knee; R06.02 Shortness of breath; K21.9 Gastro-esophageal reflux disease without esophagitis; Z79.01 Long term (current) use of anticoagulants; D64.89 Other specified anemias; Z79.4 Long term (current) use of insulin; E11.65 Type 2 diabetes mellitus with hyperglycemia; I82.432 Acute embolism and thrombosis of left popliteal vein; M19.90 Unspecified osteoarthritis, unspecified site; Z59.86 Financial insecurity; E78.5 Hyperlipidemia, unspecified